=== PATIENT | male | born 1960 | race Caucasian/White ===

== ENCOUNTER 2017-02-19 20:07 | Emergency (ER) | payer SELFPAY ==
[~2017-02-19] VITALS: Ht 180.3 cm; Wt 88.5 kg
[2017-02-19 20:15] VITALS: BP 181/107; PULSE 100; RESP 20; TEMP 98.5; O2SAT 98
[2017-02-19] MEDS ORDERED: BP Med (20:25)
[2017-02-19] MEDS ORDERED: LIDOCAINE 1%/EPINEPHrine 1:100,000 SOLN 30 ML VIAL INFIL ONE (20:30)
[2017-02-19] MEDS ORDERED: LIDOCAINE 1%/EPINEPHrine 1:100,000 SOLN 20 ML VIAL INFIL ONE (20:30)
[2017-02-19] MEDS ORDERED: TETANUS/DIPHTHERIA TOXOID ADULT 0.5 ML VIAL IM ONE (20:30)
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
[2017-02-19 21:05] VITALS: BP 140/78; PULSE 94; RESP 18; O2SAT 96
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
[2017-02-19 21:55] VITALS: BP 141/78; TEMP 98.5
== END 2017-02-19 22:09 | disposition home or self-care (01) ==
LOC: PHED 20:07
DX: S01.01XA Laceration without foreign body of scalp, initial encounter (principal); S50.311A Abrasion of right elbow, initial encounter; Y04.2XXA Assault by strike against or bumped into by another person, initial encounter
CPT/HCPCS: 12002; 70450; 90471; 90714; 96372